=== PATIENT | female | born 1975 | race African-American/Black ===

== ENCOUNTER 2017-09-08 07:57 | Day surgery (SDC) | payer OTHER ==
[2017-09-04 14:37] VITALS: BMI 32.9
[2017-09-08] MEDS ORDERED: Lactated Ringer's 1,000 ML IV ONE (08:37)
[2017-09-08 09:32] LABS: BLOOD UREA NITROGEN 13 mg/dl (7-17); CALCIUM 8.7 mg/dL (8.4-10.2); CARBON DIOXIDE 20 mmol/L (22-30); CHLORIDE 109 mmol/L (98-107); GFR AFRICAN-AMERICAN > 60; GLUCOSE,RANDOM 95 mg/dL (65-105); POTASSIUM 4.1 MMOL/L (3.6-5.0); SODIUM 138 mmol/l (132-148)
[2017-09-08] MEDS ORDERED: ceFAZolin IV 1 gm in Dextrose 1 GM/50 ML BAG IVPB ONE (10:40)
--- NOTE | 2017-09-08 10:46 | CP.SDSHP ---
Same Day Surgery H & P - History Proposed Procedure: Left breast mass mass excision Pre-Op Diagnosis: left breast mass - Previous Medical/Surgical History Previous Surgical History: laparosopic cholecystectomy - Allergies Allergies: Allergies No Known Allergies Allergy (Verified 12/09/16 09:37) - Physical Exam General Appearance: well developed, no apparent distress Vital Signs: Vital Signs 09/08/17 09/08/17 08:21 08:23 Temperature 97.7 F Pulse Rate 63 63 Respiratory 20 Rate Blood Pressure 121/79 O2 Sat by Pulse 99 Oximetry Mental Status: Alert & Oriented x3 Neuro: WNL Heart: WNL Lungs: WNL GI: WNL - Impression Impression: patient stable and prepped for surgery - Date & Time Date: 09/08/17 Time: 10:30 Short Stay Discharge - Short Stay Discharge Admitting Diagnosis/Reason for Visit: N63 Disposition: HOME/ ROUTINE Referrals: Ankur Milner MD [Primary Care Provider] -
[2017-09-08] MEDS ORDERED: Propofol 10 mg/ml Inj (20 ML) ONE (10:51)
[2017-09-08] MEDS ORDERED: Midazolam 2 MG/2 ML VIAL ONE (10:51)
--- NOTE | 2017-09-08 11:43 | PCM.SURG1 ---
Surgeon's Initial Post Op Note - Surgeon's Notes Surgeon: Dr. Kaur Director Utilization Management: Dr. Courtney PGY2, Dr. Marte PGY1 Type of Anesthesia: General LMA Pre-Operative Diagnosis: left breast mass Operative Findings: see dictation Post-Operative Diagnosis: same Operation Performed: Left breast lumpectomy Specimen/Specimens Removed: left breast mass Estimated Blood Loss: EBL {In ML}: 10 Drains Used: No Drains Post-Op Condition: Good Date of Surgery/Procedure: 09/08/17 Time of Surgery/Procedure: 10:55
[2017-09-08] MEDS ORDERED: Lactated Ringer's 1,000 ML IV SCH (12:00)
[2017-09-08 12:05] VITALS: O2SAT 100
[2017-09-08 12:16] VITALS: PULSE 60; RESP 20
[2017-09-08 13:20] VITALS: BP 127/74; TEMP 98.1
--- NOTE | 2017-09-08 20:39 | OP ---
PROCEDURE DATE: 09/08/2017 SURGEON: Bryanna Kaur MD. [employer] OPERATOR: Dr. Courtney. TYPE OF ANESTHESIA: General LMA. ANESTHESIA ADMINISTERED BY: Trev Nielson MD. PREOPERATIVE DIAGNOSIS: Left breast mass. POSTOPERATIVE DIAGNOSIS: Left breast mass. PROCEDURE: Excision of left breast mass. DESCRIPTION OF OPERATION: With the patient in the supine position under adequate general anesthesia, the left breast was prepped and draped in the usual sterile manner. The patient had a palpable mass in the upper outer quadrant of the left breast which had undergone a core biopsy indicating a fibroepithelial lesion and a curved incision was made overlying the palpable mass, taken down through the full-thickness of skin. The breast tissue was divided down to the area of the mass and then flaps were raised centrally and peripherally to a depth beneath that of the mass. The mass itself was then grasped with a towel clip and the remaining margins were divided using cautery. The deep margin was then also divided using cautery, allowing the mass to be removed. 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 The operative site was examined for hemostasis and closure was performed in two layers with the breast tissue being re-approximated with 3-0 Vicryl suture and then subcuticular closure with 4-0 Monocryl and Steri-Strips. Dry sterile dressing was applied. The patient tolerated the procedure well and transferred to the recovery room in stable condition. Estimated blood loss for the procedure was 10 mL. Bryanna Kaur MD
== END 2017-09-08 14:30 | disposition home or self-care (01) ==
LOC: H.OPSURG 07:57
PROVIDERS: ATTEND Specialist
DX: N62 Hypertrophy of breast (principal); N63.20 Unspecified lump in the left breast, unspecified quadrant
CPT/HCPCS: 19120; 19301; 36415; 80048; 88305; J0690; J2001; J2250; J2704; J3010; J7120